=== PATIENT | male | born 1985 | race Caucasian/White ===

== ENCOUNTER → 2016-11-11 | Day surgery (SDC) | payer OTHER ==
[~2016-11-11] VITALS: Ht 177.8 cm; Wt 87.6 kg
[2016-11-11] VITALS (8 sets, daily range): BP systolic 132–140; BP diastolic 67–89; PULSE 72–107; RESP 15–21; O2SAT 100
[~2016-11-11] MED LIST: Atropine 0.4 mg/mL Inj IVPUSH PRN; CeFAZolin Inj 2 GM in IV Premix 1 EACH IV ONE; Dexamethasone 4 mg/mL Inj IVPUSH PRN; EPHEDrine Sulfate 50 mg/mL Inj IVPUSH PRN; HYDROmorphone 1 mg/mL Inj IVPUSH PRN; Labetalol 5 mg/mL 20 mL Inj IV PRN; Lactated Ringer's 1,000 ML IV SCH; Lactated Ringer's 500 ML IV PRN; MELO-253 PO; MetoCLOpramide 5 mg/mL 2 mL Inj IVPUSH PRN; Ondansetron 2 mg/mL 2 mL Inj IVPUSH PRN; Ondansetron 2 mg/mL 2 mL Inj ONE; Phenylephrine 10,000 mCg/mL Inj IVPUSH PRN; Propofol 10 mg/mL 20 mL Inj ONE; Ropivacaine-PF 0.5% 30 mL Inj INJ ONE; fentaNYL-PF 50 mCg/mL 2 mL Inj ONE; hydrALAZINE 20 mg/mL Inj IVPUSH PRN
[2016-11-11] MEDS: Lactated Ringer's 1,000 ML IV SCH ×2 (06:00→06:01)
--- NOTE | 2016-11-11 07:01 | PCM.HPANE ---
Patient Data Date of Service: Nov 11, 2016 Surgeon Admitting Provider: Attending Provider:Ari Kwong DO Primary Care Physician:Felix Luna MD Other Provider:Anthony Lane Anesthesia Reason for Visit Left Hip Avascular Necrosis Ht/WT & BMI Height (Feet): 5 Height (Inches): 10.00 Weight (Kilograms): 87.6 Body Mass Index 27.00 Allergies Coded Allergies: No Known Allergies (Unverified , 11/06/16) Past Anesthesia History Anesthesia History: Denies:: Abnormal Airway, Anesthesia Reactions (Never has had surgery), Difficult Intubation, Fam Anesthesia Reaction, Fam Malignant Hypertherm, Malignant Hyperthermia Diabetes History Hx Diabetes?: No MRSA MRSA: No Medications Home Meds Incl Beta Santiago: No Reported Medications Meloxicam 15 Mg [id number] Mg PO DAILY 30 Days Ref 0 11/06/16 History History of ENT Problems?: No HEENT History: Denies:: Abnormal Airway Difficult Intubation Dysphagia Hearing Problem Sinus Problem TMJ Denture Type: None Teeth Condition: Within Normal Limits Hx of Heart Problems?: No Cardiovascular History: Denies:: Chest Pain Coronary Artery Disease Hypertension Hx of Respiratory Problem?: No Respiratory History: Denies:: Oxygen Administration Pneumonia Tuberculosis Use of C-PAP Machine Use of Inhalers / NEBS Hx Neurologic Problems?: No Neurological History: Denies:: Alzheimer's Disease CVA Dementia Dizziness Headaches Multiple Sclerosis Seizures TIA Hx of GI Problems?: No Hx of Problems?: No Genitourinary History: Denies:: Kidney Stones HX of Peritoneal Dialysis: No Male Hx: Denies:: Prostate Problems Scrotal Mass Testicular Surgery Skin History: Denies:: History Skin Disorders? Pressure Ulcers Hx Musculoskeletal Problems?: Yes Musculoskeletal History: Positive for:: Musculoskeletal Trauma Denies:: Back Injury Degenerative Joint Fibromyalgia Joint Replacement Myasthenia Gravis Osteoarthritis Rheumatoid Arthritis Systemic Lupus Hx of Psycho/Social Problems?: No Hx Surgeries?: Yes (eye lid laceration as a child) Hx Any Other Health Problems?: No Other History: Positive for:: Hospitalization Denies:: Cancer Endocrine Disease Thyroid Disease History Blood Transfusions: Positive for:: Accept Blood Products? Denies:: Blood Transfusions Hx Diabetes: No Hx Alcohol Use: NoHx Substance Use: No Stop/Bang S-Snoring: Do You Snore Loudly: No T-Tired: feel tired, fatigued: No O-Obsered: Observed not breath: No P-Blood Pressure: treated: No B- Body Mass Index > 35 kg/m2: No A- Age over 50: No N- Neck Large Circumference: No G- Gender Male: Yes DIMPLE Total Score: 1 DIMPLE Risk Assessment: Low Risk, <3 Yes Risk Assessment Category Category 1A: Patient has history of documented sleep apnea, and HAS NOT received any narcotic, sedative or anesthesia administration during this stay. Category 1B: Patient has history of documented sleep apnea, and HAS received any narcotic , sedative or anesthesia administration during this stay Category 2: Patient has SUSPECTED Obstructive Sleep Apnea, and HAS received any narcotic , sedative or anesthesia administration during this stay. Category 3: Patient has SUSPECTED Obstructive Sleep Apnea and HAS NOT received narcotic, sedative or anesthesia administration during this stay. Category 4: Outpatient in Procedural Areas with known sleep apnea or who screen positive for High Risk via the STOP/BANG questionnaire. Exam Exam Vital Signs Vital Signs Date Time Temp Pulse Resp B/P Pulse Ox O2 Delivery O2 Flow Rate FiO2 11/11/16 06:31 36.1 72 18 132/68 100 Room Air General Appearance: Alert, Oriented X3, Cooperative HEENT/AIRWAY: MP 2, Neck Movement (Full), Mouth Opening (slightly small) Lungs: Clear to Auscultation, Normal Air Movement Heart: Regular Rate/Rhythm, Normal S1, Normal S2 Meds/Labs/Diagnostics Admission Meds Current Medications Lactated Ringer's (Lr) 1,000 ml @ 80 mls/hr [id number] IV Last administered on t 06:01; Start 11/11/16 at 06:00 Plan Impression Patient chart reviewed, patient interviewed and anesthestic plan with risks, benefits, and alternatives discussed, and informed consent obtained. NPO per Anesth. Guidelines: Yes ASA Physical Status: ASA2 Mod Systemic Disease Anesthetic Plan: GA Bene/Risks/Altern/Consents: Yes HP Complete Prior to Induction: Yes Yann Leon MD Nov 11, 2016 06:50
[2016-11-11] MEDS: fentaNYL-PF 50 mCg/mL 2 mL Inj IVPUSH PRN ×2 (08:50→09:10)
--- NOTE | 2016-11-11 09:17 | OP ---
[address] [address] OPERATIVE REPORT PATIENT: CORINA PIRES : 1985 MR#: [id number] ADMIT: 11/11/2016 JOB ID: [id number] DATE OF SURGERY: 11/11/2016 PREOPERATIVE DIAGNOSIS(ES): Left hip avascular necrosis. POSTOPERATIVE DIAGNOSIS(ES): Left hip avascular necrosis. PROCEDURE: Left hip core decompression drilling. SURGEON: Ari Kwong D.O. CLAM TREADER: Luis Reddy M.D., PGY1. 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 We discussed treatment options for this and he wished to proceed with a left hip core decompression drilling and once this hopefully heals most likely a right total hip replacement. We discussed the risks, benefits, and possible complications of surgery. All questions were answered and he wished to proceed. PROCEDURE IN DETAIL: The patient was brought to the operating room. He was given a preoperative antibiotic and general anesthetic. Placed onto the fracture table. The left hip was sterilely prepped and draped. An incision was made just above the level of the lesser trochanter and dissection was carefully carried through the subcutaneous tissue. An IT band done onto the lateral femur. A guide pin was placed to advance into the femoral head. We started the guide pin above the level of the lesser trochanter and advanced in this to head into the area of avascular necrosis in the head. We placed a total of four pins, one being slightly anterior, one being slightly posterior and two more central, all of which had excellent trajectory into the area of avascular necrosis when using the MRI for triangulation. Fluoroscopy was used to confirm pin placement. The pins were then removed. The wounds were irrigated and closed with 0 Vicryl to repair the fascia, 2-0 to close the subcu. The skin was closed with jorge. Naropin was added as an adjunct local anesthetic. Sterile dressings were applied. The patient tolerated the procedure well. Blood loss was 10 cc. POSTOPERATIVE PROTOCOL: Have the patient remain toe-touch weightbearing on the left lower extremity for a period of six weeks and followup in two weeks for wound check, and in six weeks for a postop check with x-rays. He is given a prescription for Mckee 5/325 for pain.
[2016-11-11] MEDS: HYDROcodone-APAP 5-325 mg Tablet PO PRN ×2 (09:20→09:58)
--- NOTE | 2016-11-11 09:43 | PCM.ANEP1 ---
Post Anesthesia PACU Phase 1 Assessment Date of Service: Nov 11, 2016 Vital Signs Vital Signs Date Time Temp Pulse Resp B/P Pulse Ox O2 Delivery O2 Flow Rate FiO2 11/11/16 09:17 81 18 140/89 100 Room Air 11/11/16 09:11 36.4 77 21 133/88 100 Room Air 11/11/16 08:54 95 20 137/86 100 Room Air 11/11/16 08:49 106 19 134/80 100 Room Air 11/11/16 08:40 107 16 136/67 100 Simple Mask 10 11/11/16 08:38 36.6 104 15 134/82 100 Simple Mask 10 11/11/16 06:31 36.1 72 18 132/68 100 Room Air Anesthetic Administered: GA Level of Alertness: Awake, talking PHELAN's with Equal Strength: Yes Pain: No Nausea or Vomiting: No CV Function & Hydration Stable: Yes Airway Device: Oxygen Delivery: Simple Mask Lungs: Normal Air Movement Dermatome Level: Full Sensation PACU Phase 2 Assessment Complications: No Follow up Care: N/A Patient Instructions Provided: N/A Yann Leon MD Nov 11, 2016 09:43
--- NOTE | 2016-11-11 17:01 | DRSVH ---
PROCEDURE: X-RAY LEFT HIP COMPLETE, MINIMUM TWO VIEWS ([id number]) INDICATIONS: LEFT HIP CORE DECOMPRESSION DRILLING TECHNIQUE: 2 views of the hip were acquired. COMPARISON: Outside Film, CR, XR PELVIS W BILAT LAT HIPS 3VW, 05/23/2016, 10:51. FINDINGS: Bones: 2 intraoperative images demonstrate 2 surgical pins traversing the left femoral head and neck. Soft tissues: Incompletely evaluated. IMPRESSION: 2 surgical pins traversing the left femoral head and neck. Dictated by: Hung Garcia [facility] Interpreted: Maxine Ren MD on 11/11/2016 at 10:55 Approved by: Maxine Ren M.D. on 11/11/2016 at 16:59
== END | disposition home or self-care (01) ==
LOC: SAS 05:56
PROVIDERS: ATTEND Orthopaedic Surgery
DX: M87.052 Idiopathic aseptic necrosis of left femur (principal); M25.552 Pain in left hip